=== PATIENT | male | born 1990 | race Two or more races ===

== ENCOUNTER 2016-10-30 08:17 | Emergency (ER) | payer OTHER ==
[~2016-10-30] VITALS: Ht 160 cm; Wt 56.7 kg
[~2016-10-30 08:17] MED LIST: ALBUTEROL SULF8.5 GM INH; AUGMENTIN 875-1 EAC1 ORAL; AZITHROMYCIN500 MG ORAL; CLEOCIN HCL300 MG PO; MYCOSTATIN100000 UNI TOPIC; NKM; ZOFRAN ODT4 MG ORAL; ZOLOFT25 MG ORAL
[2016-10-30 08:32] VITALS: BP 115/72
[2016-10-30] MEDS ORDERED: AMOXICILLIN500 MG ORAL (09:05)
[2016-10-30 09:10] VITALS: BP 115/72
--- NOTE | 2016-10-30 10:45 | Emergency Room Report ---
History of Present Illness General Chief Complaint: Sore Throat Source: Patient Present Illness HPI 26-year-old M presents ED complaining of sore throat. Pain x3 days. Notes subjective fever. Denies cough. Denies earache. Pain is a 7/10. Throbbing. Worse with swallowing. Nonradiating. No other aggravating relieving factors. Denies sick contacts or recent travel. Denies any other associated symptoms Allergies: Coded Allergies: No Known Allergies (Unverified , 06/11/14) Patient History Past Medical History: GERD Past Surgical History: none Pertinent Family History: none Social History: Denies: alcohol use, drug use, smoking Immunizations: UTD Reviewed Nursing Documentation: PMH: Agreed, PSxH: Agreed Nursing Documentation-PMH Past Medical History: No Stated History Hx Gastrointestinal Problems: Yes - HX GASTRITIS Review of Systems All Other Systems: negative except mentioned in HPI Physical Exam Vital Signs Date Time Temp Pulse Resp B/P Pulse Ox O2 Delivery O2 Flow Rate FiO2 10/30/16 08:22 98.4 104 16 115/72 99 Room Air Sp02 EP Interpretation: reviewed, normal General Appearance: no apparent distress, alert, GCS 15, non-toxic Head: normocephalic Eyes: bilateral eye PERRL, bilateral eye normal inspection ENT: hearing grossly normal, no angioedema, normal voice, pharyngeal erythema, tonsillar exudate Neck: full range of motion, supple/symm/no masses Respiratory: chest non-tender, lungs clear, normal breath sounds, speaking full sentences Cardiovascular #1: normal inspection Gastrointestinal: normal inspection Rectal: deferred Genitourinary: no CVA tenderness Musculoskeletal: normal inspection Neurologic: alert, oriented x3, responsive, motor strength/tone normal, sensory intact, speech normal Psychiatric: normal inspection Skin: normal inspection Lymphatic: normal inspection Medical Decision Making Diagnostic Impression: Primary Impression: Pharyngitis Qualified Codes: J02.9 - Acute pharyngitis, unspecified ER Course Hospital Course 26-year-old male presents to ED complaining of sore throat + fever Differential diagnoses include: URI, pharyngitis, otitis media Clinical course Patient placed on stretcher. After initial history, physical exam reveals a young male in no acute distress. Bilateral TM unremarkable. There is pharyngeal erythema w/ tonsillar exudates. No lymphadenopathy. Clinical findings consistent with pharyngitis. Reassurance given Diagnosis - pharyngitis Stable and discharged home with prescriptions for amoxicillin. Instructed to followup with PMD. return to ED if symptoms recur or worsen Last Vital Signs Date Time Temp Pulse Resp B/P Pulse Ox O2 Delivery O2 Flow Rate FiO2 10/30/16 09:10 98.4 103 17 115/72 99 Room Air Status: improved Disposition: HOME, SELF-CARE Condition: Stable Scripts Amoxicillin* (AMOXIL*) 500 Mg Capsule 500 MG ORAL THREE TIMES A DAY, #21 CAP Prov: LUIS SOUZA M.D. 10/30/16 Patient Instructions: Pharyngitis, [id number] LUIS SOUZA M.D. Oct 30, 2016 10:45
== END 2016-10-30 09:15 | disposition home or self-care (01) ==
LOC: EMR 08:59
DX: J02.9 Acute pharyngitis, unspecified (principal); K21.9 Gastro-esophageal reflux disease without esophagitis
CPT/HCPCS: 99284

== ENCOUNTER 2016-11-01 21:43 | Emergency (ER) | payer OTHER ==
[~2016-11-01] VITALS: Ht 160 cm; Wt 56.7 kg
[~2016-11-01 21:43] MED LIST changes: +AMOXICILLIN500 MG ORAL
[2016-11-01 22:20] VITALS: BP 117/81
--- NOTE | 2016-11-01 23:18 | Emergency Room Report ---
History of Present Illness General Chief Complaint: Flu Like Symptoms Source: Patient Present Illness HPI Is a 26-year-old male presents with flulike illness. Onset for last 2 days. He was here couple days ago for sore throat. Based on amoxicillin. Not getting better. He has fever and generalized myalgia. Also with nausea and vomiting. Also with diarrhea. Taking Tylenol and not helping. his girlfriend was here yesterday positive for influenza. Allergies: Coded Allergies: No Known Allergies (Unverified , 06/11/14) Patient History Past Medical History: see triage record, old chart reviewed Past Surgical History: other Pertinent Family History: none Immunizations: other Reviewed Nursing Documentation: PMH: Agreed, PSxH: Agreed Nursing Documentation-PMH Past Medical History: No Stated History Review of Systems Constitutional: Reports: fever, weakness Eye: Denies: blurred vision, eye pain ENT: Denies: ear pain, nose congestion, throat swelling Respiratory: Reports: cough Cardiovascular: Denies: chest pain, palpitations Gastrointestinal: Reports: diarrhea, nausea, vomiting Musculoskeletal: Denies: back pain, joint pain Skin: Denies: rash Neurological: Denies: headache, numbness Endocrine: Denies: increased thirst, increased urine Hematologic/Lymphatic: Denies: easy bruising All Other Systems: negative except mentioned in HPI Physical Exam Vital Signs Date Time Temp Pulse Resp B/P Pulse Ox O2 Delivery O2 Flow Rate FiO2 11/01/16 22:09 99.1 126 18 117/81 96 Room Air vitals with tachycardia Sp02 EP Interpretation: reviewed, normal General Appearance: no apparent distress, alert, other - Ill-appearing Head: normocephalic, atraumatic Eyes: bilateral eye EOMI, bilateral eye PERRL ENT: hearing grossly normal, pharyngeal erythema, other - No trismus Neck: full range of motion, supple, no meningismus Respiratory: chest non-tender, lungs clear, normal breath sounds Cardiovascular #1: regular rate, rhythm, no murmur Gastrointestinal: normal bowel sounds, non tender, no mass, no organomegaly, no bruit, non-distended Musculoskeletal: back normal, gait/station normal, normal range of motion Psychiatric: mood/affect normal Skin: warm/dry Medical Decision Making Diagnostic Impression: Primary Impression: Influenza Additional Impression: Proteinuria ER Course Patient presents with fever and flulike illness. The fact that his girlfriend was treated yesterday for influenza, does make his symptom consistent with influenza. Symptoms started after his girlfriend. Unfortunately is approaching 48 hour. This make Tamiflu less effective. I will go ahead and write prescription for it. No evidence of sepsis, meningitis, pneumonia or other serious bacterial infection. He felt better now. We'll discharge home. Lab Results Impression labs unremarkable Chest X-Ray Diagnostic Results EP Interpretation: Yes Findings: no consolidation, no effusion, no pneumothorax, no acute cardiopulmonary disease Number of Views: 1 Last Vital Signs Date Time Temp Pulse Resp B/P Pulse Ox O2 Delivery O2 Flow Rate FiO2 11/01/16 22:16 126 18 Room Air 11/01/16 22:09 99.1 117/81 96 Status: improved Disposition: HOME, SELF-CARE Condition: Stable Scripts Ibuprofen* (MOTRIN*) 600 Mg Tablet 600 MG ORAL THREE TIMES A DAY, #30 TAB 0 Refills Prov: OSMAR LE M.D. 11/02/16 Oseltamivir Phosphate (Tamiflu) 75 Mg Capsule 75 MG ORAL TWICE A DAY, #14 CAP Prov: OSMAR LE M.D. 11/02/16 Referrals: [facility],REFERRIN (PCP) Patient Instructions: INFLUENZA (Adult) Additional Instructions: Followup your Dr. in 7 days. Rest. Increase fluid. Return if worse. OSMAR LE M.D. Nov 01, 2016 23:18
[2016-11-01 23:48] LABS: BASOPHILS % (AUTO) 1.3 % (0.0-2.0); EOSINOPHILS % (AUTO) 0.9 % (0.0-3.0); LYMPHOCYTES % (AUTO) 14.4 % (20.0-45.0); MEAN CORPUSCULAR HEMOGLOBIN 29.7 PG (27.0-31.0); MEAN CORPUSCULAR HGB CONC 34.2 G/DL (32.0-36.0); MEAN CORPUSCULAR VOLUME 87 FL (80-99); MEAN PLATELET VOLUME 5.8 FL (6.5-10.1); MONOCYTES % (AUTO) 12.2 % (1.0-10.0); NEUTROPHILS % (AUTO) 71.2 % (45.0-75.0); PLATELET COUNT 329 K/UL (150-450); RED CELL DISTRIBUTION WIDTH 10.9 % (11.6-14.8); WHITE BLOOD COUNT 13.2 K/UL (4.8-10.8)
[2016-11-01 23:50] LABS: APPEARANCE,URINE CLEAR; KETONES,URINE NEGATIVE (NEGATIVE); LEUKOCYTE ESTERASE ,URINE 1+ (NEGATIVE); NITRITE,URINE NEGATIVE (NEGATIVE); PH,URINE 6.5 (4.5-8.0); PROTEIN,URINE 2+ (NEGATIVE); UROBILINOGEN,URINE 1 MG/DL (0.0-1.0)
[2016-11-01 23:54] LABS: BACTERIA,URINE FEW /HPF; RBC,URINE 0-2 /HPF (0 - 0); SQUAMOUS EPITHELIAL CELL,UR OCCASIONAL /LPF (NONE/OCC)
[2016-11-02 00:03] LABS: ALANINE AMINOTRANSFERASE 8 U/L (3-41); ANION GAP 18 (5-15); ASPARTATE AMINO TRANSFERASE 11 U/L (5-40); CALCIUM 8.8 mg/dL (8.6-10.2); CARBON DIOXIDE 24 mEQ/L (20-30); CHLORIDE 94 mEQ/L (98-107); GLOMERULAR FILTRATION RATE > 60 mL/min (>60); HEMOLYSIS 5; POTASSIUM 3.6 mEQ/L (3.4-4.9); SODIUM 136 mEQ/L (135-145); TOTAL PROTEIN 7.4 g/dL (6.6-8.7)
[2016-11-02] MEDS: Ketorolac 30mg Inj IV ONE (00:05)
[2016-11-02 00:20] VITALS: BP 119/80
[2016-11-02] MEDS ORDERED: TAMIFLU75 MG ORAL (01:07)
[2016-11-02] MEDS ORDERED: IBUPROFEN600 MG ORAL (01:07)
[2016-11-02 01:15] VITALS: BP 118/79
--- NOTE | 2016-11-02 10:58 | Diagnostic Imaging Report ---
Indication: Shortness of breath Technique: Single portable AP view of the chest. Findings: Comparison: 05/03/2016 The bones and extra pulmonary soft tissues, cardiomediastinal silhouette, pulmonary vasculature and parenchyma, and pleural surfaces remain unremarkable. IMPRESSION: Negative portable AP chest, unchanged.
== END 2016-11-02 01:15 | disposition home or self-care (01) ==
LOC: EMR 22:50
DX: J11.1 Influenza due to unidentified influenza virus with other respiratory manifestations (principal); R80.9 Proteinuria, unspecified
CPT/HCPCS: 36415; 71010; 80053; 81003; 83605; 85025; 87040; 96374; 96375; 99284; J1885; J2405

== ENCOUNTER 2017-03-24 18:31 | Emergency (ER) | payer OTHER ==
[~2017-03-24] VITALS: Ht 160 cm; Wt 56.7 kg
[~2017-03-24 18:31] MED LIST changes: +IBUPROFEN600 MG ORAL; +TAMIFLU75 MG ORAL
[2017-03-24 18:41] VITALS: BP 113/74
--- NOTE | 2017-03-24 19:08 | Emergency Room Report ---
History of Present Illness General Chief Complaint: Laceration Source: Patient Present Illness HPI 26-year-old male presents emergency department complaining of 9/10 in severity progressive pain to the distal left index finger times one day. Patient reports tenderness states he had puncture wound from copper wire 2 days ago and pain started to develop yesterday evening. Patient reports mild erythema he states he is up-to-date with his tetanus vaccination she denies fevers or chills. Denies rashes. Denies CP, Palpitations, LOC, AMS, dizziness, Changes in Vision, Sensation, paresthesias, or a sudden severe headache. Allergies: Coded Allergies: No Known Allergies (Unverified , 06/11/14) Patient History Past Medical History: see triage record Past Surgical History: none Pertinent Family History: none Immunizations: UTD Reviewed Nursing Documentation: PMH: Agreed, PSxH: Agreed Nursing Documentation-PMH Past Medical History: No Stated History Review of Systems All Other Systems: negative except mentioned in HPI Physical Exam Vital Signs Date Time Temp Pulse Resp B/P Pulse Ox O2 Delivery O2 Flow Rate FiO2 03/24/17 18:35 97.9 73 20 113/74 98 Room Air Sp02 EP Interpretation: reviewed, normal General Appearance: no apparent distress, alert, GCS 15, non-toxic Head: normocephalic, atraumatic Eyes: bilateral eye PERRL, bilateral eye normal inspection ENT: hearing grossly normal, normal pharynx, no angioedema, normal voice Neck: full range of motion, supple/symm/no masses Respiratory: lungs clear, normal breath sounds, speaking full sentences Cardiovascular #1: regular rate, rhythm, no edema, normal capillary refill Musculoskeletal: back normal, gait/station normal, normal range of motion, tender - ttp to distal left index finger with erythema noted about the puncture wound, no d/c , no bleeding, FROM Neurologic: alert, oriented x3, responsive, motor strength/tone normal, sensory intact, speech normal Psychiatric: judgement/insight normal, memory normal, mood/affect normal Skin: normal color, no rash, warm/dry, well hydrated, other - distal left index finger with erythema noted about the puncture wound, no d/c no evidence of fb. Medical Decision Making PA Attestation Dr. Hunter is my supervising Physician whom patient management has been discussed with. Diagnostic Impression: Primary Impression: Cellulitis Qualified Codes: L03.012 - Cellulitis of left finger Additional Impression: Puncture wound ER Course 26-year-old male presents emergency department complaining of 9/10 in severity progressive pain to the distal left index finger times one day. Patient reports tenderness states he had puncture wound from copper wire 2 days ago and pain started to develop yesterday evening. Patient reports mild erythema he states he is up-to-date with his tetanus vaccination she denies fevers or chills. Denies rashes. Denies CP, Palpitations, LOC, AMS, dizziness, Changes in Vision, Sensation, paresthesias, or a sudden severe headache. Ddx considered but are not limited to cellulitis, paronychia, eponychia, ingrown toe nail, fracture, d/L, foreign body Vital signs: are WNL, pt. is afebrile H&PE are most consistent with cellulitis s/p puncture wound. no abscess noted, no fluctuance ORDERS: none required at this time, the diagnosis is clinical ED INTERVENTIONS: - Wound cleaning performed. DISCHARGE: At this time pt. is stable for d/c to home. Will provide printed patient care instructions, and any necessary prescriptions. Care plan and follow up instructions have been discussed with the patient prior to discharge. Last Vital Signs Date Time Temp Pulse Resp B/P Pulse Ox O2 Delivery O2 Flow Rate FiO2 03/24/17 18:41 97.9 73 20 113/74 98 Room Air Disposition: HOME, SELF-CARE Condition: Stable Patient Instructions: Cellulitis, [id number], Puncture Wound, [id number] Additional Instructions: Take medications as directed. Follow up with PCP in 3-5 days Return sooner to ED if new symptoms occur, or current symptoms become worse. - Please note that this Emergency Department Report was dictated using [employer] core transformer assembler technology software, occasionally this can lead to erroneous entry secondary to interpretation by the dictation equipment. Prema Noel Mar 24, 2017 19:08
[2017-03-24] MEDS ORDERED: CEPHALEXIN500 MG ORAL (19:09)
[2017-03-24] MEDS ORDERED: TYLENOL EXTRA500 MG ORAL (19:10)
[2017-03-24 19:19] VITALS: BP 113/74
== END 2017-03-24 19:19 | disposition home or self-care (01) ==
LOC: EMR 19:14
DX: L03.012 Cellulitis of left finger (principal); S61.231A Puncture wound without foreign body of left index finger without damage to nail, initial encounter; W45.8XXA Other foreign body or object entering through skin, initial encounter; Y92.89 Other specified places as the place of occurrence of the external cause
CPT/HCPCS: 99282

== ENCOUNTER 2017-03-25 10:32 | Emergency (ER) | payer MEDICAID, OTHER ==
[~2017-03-25] VITALS: Ht 160 cm; Wt 56.7 kg
[~2017-03-25 10:32] MED LIST changes: +CEPHALEXIN500 MG ORAL; +TYLENOL EXTRA500 MG ORAL
[2017-03-25 10:51] VITALS: BP 125/75
--- NOTE | 2017-03-25 11:16 | Emergency Room Report ---
History of Present Illness General Chief Complaint: Pain Source: Patient Present Illness HPI 26YOM with worsening pain, swelling to distal palmar tip of left index finger. Has been taking Abx given here yesterday for presumed cellulitis with worsening of finger. Allergies: Coded Allergies: No Known Allergies (Unverified , 06/11/14) Patient History Past Medical History: none Past Surgical History: none Pertinent Family History: none Social History: Denies: alcohol use, drug use, smoking Immunizations: UTD Reviewed Nursing Documentation: PMH: Agreed, PSxH: Agreed Nursing Documentation-PMH Past Medical History: No History, Except For Hx Gastrointestinal Problems: Yes - gastritis Review of Systems All Other Systems: negative except mentioned in HPI Physical Exam Vital Signs Date Time Temp Pulse Resp B/P Pulse Ox O2 Delivery O2 Flow Rate FiO2 03/25/17 10:44 97.5 76 18 125/75 100 Room Air Sp02 EP Interpretation: reviewed, normal General Appearance: normal inspection, well appearing, no apparent distress, alert Head: normocephalic, atraumatic Eyes: bilateral eye EOMI, bilateral eye PERRL ENT: normal ENT inspection, hearing grossly normal, normal voice Neck: normal inspection, full range of motion, supple, no bony tend Respiratory: normal inspection, lungs clear, normal breath sounds, no respiratory distress, no retraction, no wheezing Cardiovascular #1: regular rate, rhythm, no edema Gastrointestinal: normal inspection, normal bowel sounds, non tender, soft, no guarding, no hernia Genitourinary: no CVA tenderness Musculoskeletal: other - Left index finger: Palmar aspect. 1cm area of flutuance with ++ ttp. Neurologic: normal inspection, alert, oriented x3, responsive, quiller hand III-XII nml as tested, motor strength/tone normal, speech normal Psychiatric: normal inspection, judgement/insight normal, mood/affect normal Skin: normal inspection, normal color, no rash Procedures Incision and Drainage Incision and Drainage : Consent: Verbal Blade Size: 11 I & D Procedure: betadine prep, sterile drapes applied, sterile dressing applied, gauze wick placed Wound Location: upper extremity Wound's Depth, Shape: superficial Wound Explored: clean Anesthesia: other - Non Splint Applied?: No Sling Applied?: No Patient Tolerated: Well Complications: None Progress 5cc purulent pus expressed Medical Decision Making Diagnostic Impression: Primary Impression: Abscess ER Course S/p I&D of abscess to left index finger Advised to complete Abx DC home Last Vital Signs Date Time Temp Pulse Resp B/P Pulse Ox O2 Delivery O2 Flow Rate FiO2 03/25/17 11:10 97.5 79 18 125/75 100 Room Air Status: improved Disposition: HOME, SELF-CARE Condition: Improved Patient Instructions: Incision and Drainage, Care After Additional Instructions: - Take ALL antibiotics until finished - Change dressing once daily GAGE MONTOYA M.D. Mar 25, 2017 11:16
== END 2017-03-25 11:10 | disposition home or self-care (01) ==
LOC: EMR 10:55
DX: L02.512 Cutaneous abscess of left hand (principal)
CPT/HCPCS: 10060

== ENCOUNTER 2017-06-01 10:16 | Emergency (ER) | payer MEDICAID, OTHER ==
[~2017-06-01] VITALS: Ht 160 cm; Wt 56.7 kg
[2017-06-01] MEDS ORDERED: KEFLEX500 MG ORAL (10:52)
[2017-06-01] MEDS ORDERED: DOXYCYCLINE MO100 MG ORAL (10:52)
[2017-06-01 11:25] VITALS: BP 116/74
--- NOTE | 2017-06-02 06:40 | Emergency Room Report ---
History of Present Illness General Chief Complaint: Skin Rash/Abscess Source: Patient Present Illness HPI 26-year-old male no significant past medical history presenting with a rash to right leg. Patient states that he has normally gets heat rashes, and was sitting in a position for a long time in which his skin was rubbing on his right leg. Patient states that she developed a rash 2 days ago, was very itchy , patient states that the next morning after scratching he noticed numerous fluid-filled pustules with yellow discharge. Patient denies any fever or chills. Allergies: Coded Allergies: No Known Allergies (Unverified , 06/11/14) Patient History Past Medical History: see triage record Past Surgical History: none Pertinent Family History: none Reviewed Nursing Documentation: PMH: Agreed, PSxH: Agreed Nursing Documentation-PMH Past Medical History: No Stated History Hx Gastrointestinal Problems: Yes - gastritis Review of Systems All Other Systems: negative except mentioned in HPI Physical Exam Vital Signs Date Time Temp Pulse Resp B/P (MAP) Pulse Ox O2 Delivery O2 Flow Rate FiO2 06/01/17 10:24 97.7 62 15 115/77 100 Room Air Sp02 EP Interpretation: reviewed, normal General Appearance: normal inspection, well appearing, no apparent distress, alert, GCS 15, non-toxic Head: normocephalic, atraumatic Eyes: bilateral eye normal inspection, bilateral eye PERRL, bilateral eye EOMI ENT: normal ENT inspection, normal pharynx, normal voice, moist mucus membranes Neck: normal inspection, full range of motion, supple Respiratory: normal inspection, lungs clear, normal breath sounds, no respiratory distress, no retraction, no wheezing, speaking full sentences, chest symmetrical Cardiovascular #1: normal inspection, regular rate, rhythm, no edema, normal capillary refill Cardiovascular #2: 2+ radial (R), 2+ radial (L) Gastrointestinal: normal inspection, non tender, soft, non-distended, no guarding Genitourinary: no CVA tenderness Musculoskeletal: normal inspection, back normal, normal range of motion, non- tender Neurologic: normal inspection, alert, oriented x3, responsive, motor strength/ tone normal, sensory intact, normal gait, speech normal Psychiatric: normal inspection, judgement/insight normal, memory normal Skin: warm/dry, normal turgor, other - Right medial anterior tib-fib, with blanching erythematous rash, with numerous less than 1 cm pustules. some with purulent drainageTender to palpation Medical Decision Making Diagnostic Impression: Primary Impression: Cellulitis and abscess of leg ER Course 26 yo male with rash to right leg DDX: Appears to be cellulitic in nature, with small nondrainable abscesses Plan: Antibiotics, warm compresses ER course: Patient has remained stable during ED stay. Disposition: Patient is to be discharged to home with antibiotics Patient is instructed to follow up with primary care within 2 days for wound check. Strict return precautions discussed with patient such as fever, chills, worsening/severe pain, rapid spread of rash, which may indicate severe illness. Patient verbalizes understanding and agrees with plan. Please note that this Emergency Department Report was dictated using [email or web address] specialist technology software, occasionally this can lead to erroneous entry secondary to interpretation by the dictation equipment Last Vital Signs Date Time Temp Pulse Resp B/P (MAP) Pulse Ox O2 Delivery O2 Flow Rate FiO2 06/01/17 11:25 72 16 116/74 100 Room Air 06/01/17 11:25 97.8 Disposition: HOME, SELF-CARE Condition: Improved Scripts Doxycycline Monohydrate* (DOXYCYCLINE MONOHYDRATE*) 100 Mg Capsule 100 MG ORAL Q12H, #14 CAP 0 Refills Prov: Krista Jarquin M.D. 06/01/17 Cephalexin* (KEFLEX*) 500 Mg Capsule 500 MG ORAL Q6H, #28 CAP 0 Refills Prov: Krista Jarquin M.D. 06/01/17 Referrals: [facility],REFERRIN (PCP) Patient Instructions: Cellulitis, [id number] Additional Instructions: Please follow up with your primary care doctor within 3 days for wound recheck Please take your prescription medication as directed. Please come back to the emergency room if you are having worsening pain, high fever chills, spread of rash. Krista Jarquin M.D. Jun 02, 2017 06:40
== END 2017-06-01 11:25 | disposition home or self-care (01) ==
LOC: EMR 11:00
DX: L03.115 Cellulitis of right lower limb (principal)
CPT/HCPCS: 99284

== ENCOUNTER 2018-01-01 15:39 | Emergency (ER) | payer MEDICAID, OTHER ==
[~2018-01-01] VITALS: Ht 160 cm; Wt 56.7 kg
[~2018-01-01 15:39] MED LIST changes: +DOXYCYCLINE MO100 MG ORAL; +KEFLEX500 MG ORAL
--- NOTE | 2018-01-01 15:58 | Emergency Room Report ---
History of Present Illness General Chief Complaint: Pain Source: Patient Present Illness HPI 27-year-old male presents to the emergency department complaining of 10 out of 10 in severity right lower posterior rib, and midline lumbar tenderness, and pain. Patient status post fall from ladder yesterday. Patient estimates that the ladder was approximately 15 feet tall and that he struck a metal pole on his way down. Patient denies hitting his head he denies loss of consciousness he denies neck pain. Denies difficulty breathing reports some pain with deep breaths. Patient states that he took unknown pain medication last night which helped however he continues to have symptoms today. Denies hematuria, abdominal pain or tenderness. Denies nausea or vomiting. Denies numbness tingling or loss of sensation or gross motor movements of the extremities, incontinence of bowel or bladder. Denies CP, Palpitations, LOC, AMS, dizziness, Changes in Vision, Sensation, paresthesias, or a sudden severe headache. Allergies: Coded Allergies: No Known Allergies (Unverified , 06/11/14) Patient History Past Medical History: see triage record Past Surgical History: none Pertinent Family History: none Reviewed Nursing Documentation: PMH: Agreed; PSxH: Agreed Nursing Documentation-PMH Past Medical History: No Stated History Hx Gastrointestinal Problems: Yes - gastritis Review of Systems All Other Systems: negative except mentioned in HPI Physical Exam Vital Signs Date Time Temp Pulse Resp B/P (MAP) Pulse Ox O2 Delivery O2 Flow Rate FiO2 01/01/18 15:44 98.4 97 20 128/69 99 Room Air 98.4 Sp02 EP Interpretation: reviewed, normal General Appearance: no apparent distress, alert, GCS 15, non-toxic Head: normocephalic, atraumatic Eyes: bilateral eye normal inspection, bilateral eye PERRL ENT: hearing grossly normal, normal voice Neck: full range of motion, no bony tend Respiratory: chest non-tender, lungs clear, normal breath sounds, no rhonchi, no respiratory distress, no accessory muscle use, no wheezing, speaking full sentences, other - no obvious bruises, ttp to the lateral and posterior right lower ribs. no abdominal ttp. Cardiovascular #1: regular rate, rhythm Gastrointestinal: normal bowel sounds, non tender, soft, non-distended, no guarding Musculoskeletal: back normal, gait/station normal, normal range of motion, tender - TTP to the midline lumbar spine and right paraspinal musculature, right lateral/posterior lower rib ttp. Neurologic: alert, oriented x3, responsive, motor strength/tone normal, sensory intact, speech normal, grossly normal Psychiatric: judgement/insight normal Skin: normal color, no rash, warm/dry, well hydrated, other - no obvious bruises, abrasions, or erythema Medical Decision Making PA Attestation Dr. Jarquin is my supervising Physician whom patient management has been discussed with. Diagnostic Impression: Primary Impression: Contusion of rib on right side Qualified Codes: S20.211A - Contusion of right front wall of thorax, initial encounter Additional Impressions: Contusion of ribs Qualified Codes: S20.211A - Contusion of right front wall of thorax, initial encounter Back pain Qualified Codes: M54.5 - Low back pain ER Course 27-year-old male presents to the emergency department complaining of 10 out of 10 in severity right lower posterior rib, and midline lumbar tenderness, and pain. Patient status post fall from ladder yesterday. Patient estimates that the ladder was approximately 15 feet tall and that he struck a metal pole on his way down. Patient denies hitting his head he denies loss of consciousness he denies neck pain. Denies difficulty breathing reports some pain with deep breaths. Patient states that he took unknown pain medication last night which helped however he continues to have symptoms today. Denies hematuria, abdominal pain or tenderness. Denies nausea or vomiting. Denies numbness tingling or loss of sensation or gross motor movements of the extremities, incontinence of bowel or bladder. Denies CP, Palpitations, LOC, AMS, dizziness, Changes in Vision, Sensation, paresthesias, or a sudden severe headache. Ddx considered but are not limited to Fracture, dislocation, contusion, Sprain/ Strain/Spasm. Vital signs: are WNL, pt. is afebrile H&PE are most consistent with musculoskeletal injury will perform imaging to r/ o fractures/dislocations. ORDERS: - CT Imaging. ED INTERVENTIONS: - Percocet PO DISCHARGE: At this time pt. is stable for d/c to home. Will provide printed patient care instructions, and any necessary prescriptions. Care plan and follow up instructions have been discussed with the patient prior to discharge. CT/MRI/US Diagnostic Results CT/MRI/US Diagnostic Results #1: Imaging Test Ordered: CT Chest Non Con Impression " No acute fractures" mild atelectasis of right lower lobe, no fluid accumulation." Per official radiology report- Please see report for specific details. CT/MRI/US Diagnostic Results #2: Imaging Test Ordered: CT L SPine Non Con Impression No acute fractures. Per official radiology report- Please see report for specific details. Last Vital Signs Date Time Temp Pulse Resp B/P (MAP) Pulse Ox O2 Delivery O2 Flow Rate FiO2 01/01/18 15:44 98.4 97 20 128/69 99 Room Air 98.4 Disposition: HOME, SELF-CARE Condition: Stable Scripts Lidocaine (Lidoderm) 1 Each Adh..patch 1 PATCH TOPIC DAILY, #30 PATCH 0 Refills Patch(es) may remain in place for up to 12 hours in any 24-hour period. Prov: Prema Noel 01/01/18 Ibuprofen* (MOTRIN*) 600 Mg Tablet 600 MG ORAL THREE TIMES A DAY, #30 TAB 0 Refills Prov: Prema Noel 01/01/18 Patient Instructions: Back Pain, Adult, [id number], Rib Contusion Additional Instructions: Take medications as directed. Follow up with a Primary Care Provider in 3-5 days, even if your symptoms have resolved. --Please review list of primary care clinics, if you do not already have a primary care provider Return sooner to ED if new symptoms occur, or current symptoms become worse. - Please note that this Emergency Department Report was dictated using [employer] technology software, occasionally this can lead to erroneous entry secondary to interpretation by the dictation equipment. Prema Noel Jan 01, 2018 15:58
[2018-01-01] MEDS ORDERED: oxyCODONE HCL/Acetaminophen 5/325mg ORAL ONE (16:30)
--- NOTE | 2018-01-01 16:32 | Diagnostic Imaging Report ---
Indication: Chest pain Technique: Continuous helical transaxial imaging of the chest was obtained from the thoracic inlet to the upper abdomen. No intravenous contrast was administered. Coronal 2-D reformats were also obtained. Total Dose length Product (DLP): 584.[address] Dose Index Volume (CTDIvol): 16.29 mGy Comparison: none Findings: Small axillary nodes are present nonspecific. Evaluation limited by lack of contrast material. Lungs are clear with exception of some minimal right basal subsegmental atelectasis posteriorly. No abnormal fluid collections are seen. No pneumothorax or infiltrates identified. Osseous structures are unremarkable. Visualized upper abdomen is unremarkable. IMPRESSION: Minimal right basal atelectasis. No acute findings The CT scanner at [facility] is accredited by the [employer] and the scans are performed using dose optimization techniques as appropriate to a performed exam including Automatic Exposure control.
--- NOTE | 2018-01-01 16:37 | Diagnostic Imaging Report ---
Indication: Back pain Technique: Continuous helical transaxial imaging of the lumbar spine was obtained from the lung bases to the pubic symphysis. No IV contrast was administered. Coronal 2-D reformats were also obtained. Study obtained in a Siemens sensation [address] Total Dose length Product (DLP): 290.[address] Dose Index Volume (CTDIvol): 9.86 mGy Comparison: None Findings: There is no evidence of an acute fracture or malalignment. Height and configuration of the vertebral bodies and intervertebral discs are within normal limits. The facets are unremarkable. There is no soft tissue swelling. Impression: Negative lumbar spine CT The CT scanner at [facility] is accredited by the [employer] and the scans are performed using dose optimization techniques as appropriate to a performed exam including Automatic Exposure control.
[2018-01-01] MEDS ORDERED: LIDODERM700 M1 TOPIC (16:55)
[2018-01-01] MEDS ORDERED: IBUPROFEN600 MG ORAL (16:55)
[2018-01-01 17:29] VITALS: BP 120/86
== END 2018-01-01 17:29 | disposition home or self-care (01) ==
LOC: EMR 16:00
DX: S20.211A Contusion of right front wall of thorax, initial encounter (principal); W11.XXXA Fall on and from ladder, initial encounter; Y92.9 Unspecified place or not applicable; M54.5 Low back pain
CPT/HCPCS: 71250; 72131; 99284

== ENCOUNTER 2018-03-26 17:08 | Emergency (ER) | payer MEDICAID ==
[~2018-03-26] VITALS: Ht 160 cm; Wt 54.4 kg
[~2018-03-26 17:08] MED LIST changes: +LIDODERM700 M1 TOPIC
[2018-03-26 17:23] VITALS: BP 132/83
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
[2018-03-26 18:35] VITALS: BP 132/83
[2018-03-26] MEDS ORDERED: IBUPROFEN800 MG ORAL (18:51)
--- NOTE | 2018-03-27 10:00 | Diagnostic Imaging Report ---
Indication: Trauma. Facial pain Technique: Continuous helical transaxial imaging of the maxillofacial structures obtained without intravenous contrast administration. Coronal 2-D reformats were also obtained. Study obtained in a Siemens sensation [address] Automatic Exposure Control was utilized. Total Dose length Product (DLP): 547.[address] Dose Index Volume (CTDIvol): 28.19 mGy Comparison: None Findings: There is a fracture of the nasal bone bilaterally. Acuity of this injury is unknown. There is no soft tissue swelling. Correlate clinically. Paranasal sinuses are clear. The orbits appear normal bilaterally. Mastoids are clear bilaterally. IMPRESSION: Fracture of the nasal bone, age indeterminate. Correlate clinically The CT scanner at [facility] is accredited by the [employer] and the scans are performed using dose optimization techniques as appropriate to a performed exam including Automatic Exposure control.
--- NOTE | 2018-03-27 11:31 | Diagnostic Imaging Report ---
Indication: pain Right hand pain Findings: 3 views of the right hand were obtained. Normal bony mineralization and alignment are demonstrated. No acute fractures, erosions, or periosteal reaction are seen. Soft tissues are unremarkable. Impression: No acute findings.
== END 2018-03-26 19:20 | disposition home or self-care (01) ==
LOC: EMR 17:52
DX: S60.011A Contusion of right thumb without damage to nail, initial encounter (principal); S00.33XA Contusion of nose, initial encounter; W51.XXXA Accidental striking against or bumped into by another person, initial encounter; Y92.89 Other specified places as the place of occurrence of the external cause
CPT/HCPCS: 29130; 70486; 99284

== ENCOUNTER 2018-04-04 15:10 | Emergency (ER) | payer MEDICAID, OTHER ==
[~2018-04-04] VITALS: Ht 160 cm; Wt 56.7 kg
[~2018-04-04 15:10] MED LIST changes: +IBUPROFEN800 MG ORAL
[2018-04-04] MEDS ORDERED: Norco 5mg/325mg tab ORAL ONE (15:45)
[2018-04-04] MEDS ORDERED: TYLENOL EXTRA500 MG ORAL (15:59)
--- NOTE | 2018-04-04 15:59 | Emergency Room Report ---
History of Present Illness General Chief Complaint: Upper Extremity Injury Source: Patient Present Illness HPI 27-year-old male presents to the emergency department complaining of 10 out of 10 in severity localized pain to the right thumb times one day. Patient reports that he injured his thumb previously and has been wearing a splint however he fell and landed on his hand today which caused exacerbation of pain. Patient reports that he did have the splint on when injury occurred. Denies numbness tingling or loss of sensation or gross motor movements of the extremities, incontinence of bowel or bladder. Denies CP, Palpitations, LOC, AMS , dizziness, Changes in Vision, weakness or a sudden severe headache. Allergies: Coded Allergies: No Known Allergies (Unverified , 06/11/14) Patient History Past Medical History: see triage record Past Surgical History: none Pertinent Family History: none Reviewed Nursing Documentation: PMH: Agreed; PSxH: Agreed Nursing Documentation-PMH Hx Gastrointestinal Problems: Yes - gastritis Review of Systems All Other Systems: negative except mentioned in HPI Physical Exam Vital Signs Date Time Temp Pulse Resp B/P (MAP) Pulse Ox O2 Delivery O2 Flow Rate FiO2 04/04/18 15:16 98.3 90 20 116/68 96 Room Air 98.2 Sp02 EP Interpretation: reviewed, normal General Appearance: alert, GCS 15, non-toxic, mild distress Head: normocephalic, atraumatic Eyes: bilateral eye normal inspection, bilateral eye PERRL ENT: hearing grossly normal, normal voice Neck: full range of motion, no bony tend Respiratory: lungs clear, normal breath sounds, speaking full sentences Cardiovascular #1: regular rate, rhythm, normal capillary refill Gastrointestinal: soft Musculoskeletal: back normal, gait/station normal, normal range of motion, tender - right snuff box, and right wrist at the radius. Neurologic: alert, oriented x3, responsive, motor strength/tone normal, sensory intact, speech normal, grossly normal Psychiatric: judgement/insight normal Skin: normal color, no rash, warm/dry, well hydrated Medical Decision Making PA Attestation Dr. lorenzana is my supervising Physician whom patient management has been discussed with. Diagnostic Impression: Primary Impression: Hand pain, right ER Course 27-year-old male presents to the emergency department complaining of 10 out of 10 in severity localized pain to the right thumb times one day. Patient reports that he injured his thumb previously and has been wearing a splint however he fell and landed on his hand today which caused exacerbation of pain. Patient reports that he did have the splint on when injury occurred. Denies numbness tingling or loss of sensation or gross motor movements of the extremities, incontinence of bowel or bladder. Denies CP, Palpitations, LOC, AMS , dizziness, Changes in Vision, weakness or a sudden severe headache. Ddx considered but are not limited to Fracture, dislocation, contusion, Sprain/ Strain/Spasm, Scaphoid fx. Vital signs: are WNL, pt. is afebrile H&PE are most consistent with musculoskeletal injury will perform imaging to r/ o fractures/dislocations. ORDERS: - X-ray Right wrist 3 views - negative for fx, Dislocation, or significant soft tissue injury, per preliminary read in ED, and signed by DENG Noel , my supervising physician has reviewed, and agrees with my interpretation. ED INTERVENTIONS: - Pain medication PO -Thumb Spika Splint re-applied to the right hand by technician plant and maintenance. Pt. remains neurovascularly intact. Discussed with this patient that x-ray imaging is not identify an acute fracture. DISCHARGE: At this time pt. is stable for d/c to home. Will provide printed patient care instructions, and any necessary prescriptions. Care plan and follow up instructions have been discussed with the patient prior to discharge. Other X-Ray Diagnostic Results Other X-Ray Diagnostic Results : X-Ray ordered: Right wrist # of Views/Limited Vs Complete: 3 View Indication: Pain EP Interpretation: Yes PA Xray: Interpretation reviewed, by supervising MD, and agrees with findings. Interpretation: no dislocation, no soft tissue swelling, no fractures Impression: No acute disease Electronically Signed by: Prema Noel PA-C Last Vital Signs Date Time Temp Pulse Resp B/P (MAP) Pulse Ox O2 Delivery O2 Flow Rate FiO2 04/04/18 15:16 98.3 90 20 116/68 96 Room Air 98.2 Disposition: HOME, SELF-CARE Condition: Stable Scripts Acetaminophen* (TYLENOL EXTRA STRENGTH*) 500 Mg Tablet 500 MG ORAL Q8H, #20 TAB 0 Refills Prov: Prema Noel 04/04/18 Referrals: [facility],REFERRING (PCP) Patient Instructions: Hand Contusion, [id number] Additional Instructions: Take medications as previously directed. Follow up with an WORKFORCE MANAGEMENT COORDINATOR in 3-5 days, even if your symptoms have resolved. If symptoms persist MRI may be required at the discretion of your PCP or Ortho Specialist. --Please review list of primary care clinics, if you do not already have a primary care provider who can give you an Orthopedic Referral. Return sooner to ED if new symptoms occur, or current symptoms become worse. - Please note that this Emergency Department Report was dictated using [employer]hand picker technology software, occasionally this can lead to erroneous entry secondary to interpretation by the dictation equipment. Prema Noel Apr 04, 2018 15:59
--- NOTE | 2018-04-04 16:03 | Diagnostic Imaging Report ---
Indication: Right wrist pain Findings: 3 views of the right wrist were obtained. No acute fractures, malalignment, erosions or periostitis are identified. Soft tissues are unremarkable. Impression: No acute findings.
[2018-04-04 16:44] VITALS: BP 116/68
[2018-04-04 16:45] VITALS: BP 116/68
== END 2018-04-04 16:46 | disposition home or self-care (01) ==
LOC: EMR 15:25
DX: M79.641 Pain in right hand (principal)
CPT/HCPCS: 99283

== ENCOUNTER → 2018-05-14 | Emergency (ER) | payer MEDICAID, OTHER ==
[~2018-05-14] VITALS: Ht 160 cm; Wt 56.7 kg
[2018-05-14 12:48] VITALS: BP 130/85
--- NOTE | 2018-05-14 15:47 | Emergency Room Report ---
History of Present Illness General Chief Complaint: Pain Source: Patient, Medical Record Present Illness HPI This patient left prior to full evaluation by medical provider. Allergies: Coded Allergies: No Known Allergies (Unverified , 06/11/14) Nursing Documentation-[facility] Past Medical History: No History, Except For Hx Gastrointestinal Problems: Yes - gastritis Physical Exam Vital Signs Date Time Temp Pulse Resp B/P (MAP) Pulse Ox O2 Delivery O2 Flow Rate FiO2 05/14/18 12:41 98.1 91 18 130/85 97 Room Air 98.1 Medical Decision Making PA Attestation Dr. lorenzana is my supervising Physician whom patient management has been discussed with. Diagnostic Impression: Primary Impression: finger pain ER Course This patient left prior to full evaluation by medical provider. Last Vital Signs Date Time Temp Pulse Resp B/P (MAP) Pulse Ox O2 Delivery O2 Flow Rate FiO2 05/14/18 12:48 98.1 97 18 130/85 97 Room Air 98.1 Disposition: LEFT W/OUT BEING SEEN Condition: Unknown Referrals: [facility],REFERRING (PCP) Prema Noel May 14, 2018 15:47
== END | disposition left against medical advice (07) ==
LOC: EMR 13:30
DX: M79.646 Pain in unspecified finger(s) (principal)

== ENCOUNTER 2018-07-05 23:10 | Emergency (ER) | payer MEDICAID ==
[~2018-07-05] VITALS: Ht 157.5 cm; Wt 49.9 kg
[2018-07-05 23:44] VITALS: BP 136/85
[2018-07-05] MEDS ORDERED: Lidocaine 1% MPF 10mg/ml 5ml INJ ONE (23:45)
--- NOTE | 2018-07-06 00:53 | Emergency Room Report ---
History of Present Illness General Chief Complaint: Pain Source: Patient Present Illness HPI Patient was cleaning at his house and felt pain in his left index finger. Patient plays piano and is concerned that there is a splinter under his nail. He's been checking at but can't see anything. There is inflammation and redness. He denies any fevers. There is no numbness. His tetanus was last year. Pain is rated He's been seen in the past for hand pain and also cellulitis. Denies fever or other somatic complaints. 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 Reviewed Nursing Documentation: PMH: Agreed; PSxH: Agreed Nursing Documentation-PMH Past Medical History: No Stated History Hx Gastrointestinal Problems: Yes - gastritis Review of Systems Constitutional: Reports: see HPI Musculoskeletal: Reports: see HPI Skin: Reports: see HPI Physical Exam Vital Signs Date Time Temp Pulse Resp B/P (MAP) Pulse Ox O2 Delivery O2 Flow Rate FiO2 07/05/18 23:17 97.7 101 18 136/85 95 Room Air 97.7 Sp02 EP Interpretation: reviewed, normal General Appearance: well appearing, no apparent distress Head: normocephalic, atraumatic Eyes: bilateral eye normal inspection, bilateral eye PERRL ENT: hearing grossly normal, normal voice Neck: full range of motion, supple Respiratory: no respiratory distress, speaking full sentences Cardiovascular #1: regular rate, rhythm Cardiovascular #2: 2+ radial (R) - good cap fill Gastrointestinal: scaphoid Musculoskeletal: gait/station normal, normal range of motion, swelling - minimal R index finger Neurologic: alert, motor strength/tone normal, sensory intact Psychiatric: mood/affect normal, other - focused on injury - picking at area, some perseveration and strange affect Skin: other - min erythema near radial side of index finger tip/nail Medical Decision Making Diagnostic Impression: Primary Impression: Paronychia Additional Impression: Rash of genitalia ER Course Patient with possible FB R index finger. DDX FB, paronychia, injury amongst others. The fingertip was numbed with topical lidocaine. Area inspected. No FB. Bacitracin applied. At discharge, c/o rash penis and mons area. States itching and believe bug bites. Exam with raised lesions with possible vesicles. Discussed possibility of herpes. He states not possible and just wants topical treatment. Advised use of bacitracin. (Consideration of check tox screen in future.) Patient stable for outpatient observation and treatment. Last Vital Signs Date Time Temp Pulse Resp B/P (MAP) Pulse Ox O2 Delivery O2 Flow Rate FiO2 07/06/18 01:47 97.7 88 18 136/85 95 Room Air 97.7 Status: improved Disposition: HOME, SELF-CARE Condition: Improved Scripts Bacitracin (Bacitracin) 28.4 Gm Oint...g. 1 APPLIC TOPIC BID, #20 GM Prov: Deshawn Pena M.D. 07/06/18 Referrals: [facility],REFERRING (PCP) Deshawn Pena M.D. Jul 06, 2018 00:53
[2018-07-06] MEDS ORDERED: BACITRACIN15 GM TOPIC (00:56)
[2018-07-06] MEDS ORDERED: Bacitracin Oint UD TOPIC ONE (01:00)
[2018-07-06 01:46] VITALS: BP 127/72
[2018-07-06 01:47] VITALS: BP 136/85
== END 2018-07-06 01:50 | disposition home or self-care (01) ==
LOC: EMR 23:57
DX: L03.012 Cellulitis of left finger (principal); R21 Rash and other nonspecific skin eruption
CPT/HCPCS: 99282

== ENCOUNTER 2019-03-31 18:25 | Emergency (ER) | payer MEDICAID ==
[~2019-03-31] VITALS: Ht 160 cm; Wt 54.4 kg
[~2019-03-31 18:25] MED LIST changes: +BACITRACIN15 GM TOPIC
--- NOTE | 2019-03-31 18:33 | NUR ---
ED Nurse Note: Pt twisted his back while skateboarding today around 1030, did not hit his head. Sharp pain 8/10 george. AOx4, VS. Will cont to monitor.
[2019-03-31 18:34] VITALS: BP 124/76
[2019-03-31] MEDS ORDERED: Methocarbamol 750mg tab ORAL ONE (18:45)
[2019-03-31] MEDS ORDERED: ROBAXIN-750750 MG PO (18:56)
[2019-03-31] MEDS ORDERED: IBUPROFEN600 MG ORAL ×2 (18:56→23:26)
[2019-03-31 19:00] VITALS: BP 124/76
--- NOTE | 2019-03-31 19:00 | NUR ---
ER DISCHARGE NOTE: Patient is cleared to be discharged per ERMD, pt is aox4, on room air, with stable vital signs. pt was given dc and prescription instructions, pt was able to verbalize understanding, pt id band removed. pt is able to ambulate with steady gait. pt took all belongings.
--- NOTE | 2019-03-31 21:13 | Emergency Room Report ---
History of Present Illness General Chief Complaint: Lower Back Pain or Injury Source: Patient Present Illness HPI The patient is a 28-year-old male presenting for right lower back pain. He states that he was skateboarding today, lost balance, and almost fell off. He states that he felt his back twist unnaturally. Pain is an 8 out of 10 dull ache and does not radiate. Worse with movement. He has not taken any pain medication. He denies any other symptoms including N, V, numbness, tingling Allergies: Coded Allergies: No Known Allergies (Unverified , 06/11/14) Patient History Past Medical History: see triage record Pertinent Family History: none Reviewed Nursing Documentation: PMH: Agreed; PSxH: Agreed Nursing Documentation-PMH Past Medical History: No History, Except For Hx Gastrointestinal Problems: Yes - gastritis Review of Systems All Other Systems: negative except mentioned in HPI Physical Exam Vital Signs Date Time Temp Pulse Resp B/P (MAP) Pulse Ox O2 Delivery O2 Flow Rate FiO2 03/31/19 18:27 98.2 106 16 122/74 (90) 99 Room Air Sp02 EP Interpretation: reviewed, normal General Appearance: no apparent distress, alert, GCS 15, non-toxic Respiratory: chest non-tender, lungs clear, normal breath sounds, speaking full sentences Cardiovascular #1: regular rate, rhythm, no edema Musculoskeletal: gait/station normal, normal range of motion, tender - R lumbar paraspinal muscles Neurologic: alert, oriented x3, responsive, motor strength/tone normal, sensory intact, speech normal Psychiatric: judgement/insight normal, memory normal, mood/affect normal, no suicidal/homicidal ideation Skin: no rash Medical Decision Making PA Attestation Dr. Pena is my supervising physician. Patient management was discussed with my supervising physician Diagnostic Impression: Primary Impression: Lumbar strain Qualified Codes: S39.012A - Strain of muscle, fascia and tendon of lower back , initial encounter ER Course The patient is a 28-year-old male presenting for right lower back pain Ddx considered include but not limited to lumbar strain, degenerative disease, fracture, sciatica, among others PE: Vitals stable. NAD TTP over the R paraspinal muscles. No midline tenderness or step-offs. Normal gait Pt DC'ed home with motrin and robaxin. heat therapy discussed. ER precautions given Last Vital Signs Date Time Temp Pulse Resp B/P (MAP) Pulse Ox O2 Delivery O2 Flow Rate FiO2 03/31/19 19:00 98.2 76 18 124/76 99 Room Air Status: improved Disposition: HOME, SELF-CARE Condition: Improved Scripts Methocarbamol* (ROBAXIN-750*) 750 Mg Tablet 750 MG PO TID, #21 TAB 0 Refills Prov: ALEXANDER GAMING P.A. 03/31/19 Ibuprofen* (MOTRIN*) 600 Mg Tablet 600 MG ORAL Q8H PRN for For Pain, #30 TAB 0 Refills Prov: ALEXANDER GAMING P.A. 03/31/19 Referrals: NOT CHOSEN [facility],REFERRING (PCP) Patient Instructions: Back Pain, Adult Additional Instructions: I discussed my findings with the patient. All questions and concerns have been answered. Treatment and medication compliance have been addressed. I advised the patient that they need to follow up with PMD in 3-5 days. Return to ED if symptoms worsen, new symptoms arise, or if needed for any reason. Patient verbalized understanding of discharge instructions. ALEXANDER GAMING Mar 31, 2019 21:13
== END 2019-03-31 19:00 | disposition home or self-care (01) ==
LOC: EMR 18:40
DX: S39.012A Strain of muscle, fascia and tendon of lower back, initial encounter (principal); V00.131A Fall from skateboard, initial encounter; Y92.9 Unspecified place or not applicable
CPT/HCPCS: 99283

== ENCOUNTER 2019-03-31 22:23 | Emergency (ER) | payer MEDICAID ==
[~2019-03-31] VITALS: Ht 160 cm; Wt 54.4 kg
[~2019-03-31 22:23] MED LIST changes: +ROBAXIN-750750 MG PO
[2019-03-31 22:45] VITALS: BP 128/91
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
[2019-03-31] MEDS ORDERED: IBUPROFEN600 MG ORAL (23:26)
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
[2019-03-31 23:31] VITALS: BP 128/91
--- NOTE | 2019-03-31 23:31 | NUR ---
ED Nurse Note: Pt cleared by health care Provider for discharge. DC instructions/prescription was given and explained to pt and verbalized understanding of teachings. All medical deviecs such as ID band removed. Pt is AAO x4, ambulatory and left with all personal belongings.
== END 2019-03-31 23:31 | disposition home or self-care (01) ==
LOC: EMR 23:13
DX: T23.222A Burn of second degree of single left finger (nail) except thumb, initial encounter (principal); X15.0XXA Contact with hot stove (kitchen), initial encounter; Y92.9 Unspecified place or not applicable
CPT/HCPCS: 99282

== ENCOUNTER 2019-04-15 09:59 | Emergency (ER) | payer MEDICAID ==
[~2019-04-15] VITALS: Ht 160 cm; Wt 54.4 kg
[2019-04-15 10:06] VITALS: BP 116/70
[2019-04-15] MEDS ORDERED: NKM (10:06)
--- NOTE | 2019-04-15 10:08 | NUR ---
ED Nurse Note: pt walked in due to right thumb pain. pt fell on his skateboard last night, denies head trauma. will continue to monitor,.
--- NOTE | 2019-04-15 10:11 | Emergency Room Report ---
History of Present Illness General Chief Complaint: Upper Extremity Injury Source: Patient Present Illness HPI Patient presents with discomfort to the right thumb and the wrist area reports that he had a fall approximately 8 PM last night off of his skateboard Patient put his hand out and sustained injury denies any elbow pain denies any shoulder pain pain to the right thumb and hand is 5 out of 10 Denies any head injury Pain is worse with touch and movement Allergies: Coded Allergies: No Known Allergies (Unverified , 06/11/14) Patient History Past Medical History: see triage record Pertinent Family History: none Reviewed Nursing Documentation: PMH: Agreed; PSxH: Agreed Nursing Documentation-PM Past Medical History: No History, Except For Hx Gastrointestinal Problems: Yes - gastritis Review of Systems All Other Systems: negative except mentioned in HPI Physical Exam Vital Signs Date Time Temp Pulse Resp B/P (MAP) Pulse Ox O2 Delivery O2 Flow Rate FiO2 04/15/19 10:03 98.1 91 16 116/70 (85) 99 Room Air Sp02 EP Interpretation: reviewed, normal General Appearance: well appearing, no apparent distress Head: normocephalic, atraumatic Eyes: bilateral eye PERRL, bilateral eye EOMI ENT: hearing grossly normal, normal pharynx Neck: supple Respiratory: lungs clear, no retraction Musculoskeletal: other - Tender on palpation of the base of the right thumb, no obvious ecchymosis Neurologic: alert, oriented x3, responsive Skin: no rash Lymphatic: no adenopathy Procedures Splinting Splinting : Consent: Verbal Location: Right hand Pre-Made Type: velcro Splint: thumb spica Pre-Proc Neuro Vasc Exam: normal Post-Proc Neuro Vasc Exam: normal Patient Tolerated: Well Complications: None Medical Decision Making Diagnostic Impression: Primary Impression: Thumb sprain ER Course Given the patient's history and presentation x-ray imaging is obtained In discussion with radiology there appears to be some chronic pathology but no obvious acute fracture given the patient's discomfort and location of pain he is never the less splinted and provided outpatient follow-up with orthopedics and will return with any concerns or changes Other X-Ray Diagnostic Results Other X-Ray Diagnostic Results : X-Ray ordered: Right hand # of Views/Limited Vs Complete: 4 View Indication: Pain EP Interpretation: Yes Interpretation: no dislocation, no soft tissue swelling, no fractures, other - Chronic changes base of thumb Impression: Other - Chronic changes base of thumb question acuity Electronically Signed by: Renzo Gonzáles DO Last Vital Signs Date Time Temp Pulse Resp B/P (MAP) Pulse Ox O2 Delivery O2 Flow Rate FiO2 04/15/19 10:06 98.1 91 16 116/70 99 Room Air Status: improved Disposition: HOME, SELF-CARE Condition: Improved Scripts Ibuprofen* (MOTRIN*) 600 Mg Tablet 600 MG ORAL Q8H PRN for For Pain, #20 TAB 0 Refills Prov: Renzo Gonzáles DO 04/15/19 Additional Instructions: Patient is provided with the discharge instructions notified to follow up with primary doctor in the next 2-3 days otherwise return to the er with any worsening symptoms. Please note that this report is being documented using [employer] technology. This can lead to erroneous entry secondary to incorrect interpretation by the dictating instrument. Renzo Gonzáles DO Apr 15, 2019 10:11
--- NOTE | 2019-04-15 10:15 | NUR ---
ED Nurse Note: ice pack placed on pt right thumb, pt is seen by ermd. po meds given and able to tolerate. will contine to monitor
--- NOTE | 2019-04-15 10:35 | NUR ---
ED Nurse Note: xray on bedside
[2019-04-15] MEDS ORDERED: IBUPROFEN600 MG ORAL (11:14)
[2019-04-15 11:25] VITALS: BP 116/70
--- NOTE | 2019-04-15 11:25 | NUR ---
ER DISCHARGE NOTE: Patient is cleared to be discharged per ERMD, pt is aox4, on room air, with stable vital signs. pt was given dc and prescription instructions, pt was able to verbalize understanding, pt id band removed without complications. pt is able to ambulate with steady gait. pt took all belongings.
--- NOTE | 2019-04-15 12:07 | Diagnostic Imaging Report ---
Clinical Indication:Trauma, pain Technique: 3 views of the right wrist Comparison: None Findings: Osseous densities about the trapezium appear to been present on earlier studies, may be developmental or indicate old trauma. There are some degenerative changes of the first carpometacarpal joint. No acute fractures. No dislocations. Impression: No definite acute bony trauma. Findings as noted
--- NOTE | 2019-04-15 12:10 | Diagnostic Imaging Report ---
Indication: Pain, trauma Technique: 3 views right hand Comparison: none Findings: Degenerative changes of the first carpometacarpal joint appears similar to the previous study. Osseous densities about the first carpometacarpal joint appear to been present previously. No definite acute fractures. No dislocations. The joint spaces are preserved. Impression: Osseous densities about the first carpometacarpal joint, probably evident on prior exam and therefore not acute. However, acute fracture fragments are not completely excludable. Recommend follow-up imaging as indicated No definite acute bony trauma otherwise Findings previously discussed by phone with Dr. Gonzáles
== END 2019-04-15 11:25 | disposition home or self-care (01) ==
LOC: EMR 10:28
DX: S63.601A Unspecified sprain of right thumb, initial encounter (principal); V00.131A Fall from skateboard, initial encounter; Y92.9 Unspecified place or not applicable
CPT/HCPCS: 29125; 99284